=== PATIENT | male | born 1955 ===

== ENCOUNTER 2023-08-31 05:36 | Day surgery (SDC) | payer OTHER ==
[2023-08-24 11:23] LABS: HEMATOCRIT 35.1 % (39.0-48.0); HEMOGLOBIN 11.7 g/dL (13-16.00); MEAN CELL VOLUME 84.8 fL (80.0-100.00); MEAN CORPUSCULAR HEMOGLOBIN 28.1 pg (27.00-32.0); MEAN CORPUSCULAR HGB CONC 33.2 g/dl (32.0-36.0); PLATELET COUNT 307 K/uL (150-450); RED BLOOD COUNT 4.14 M/uL (4.00-6.00); RED CELL DISTRIBUTION WIDTH 13.5 % (11.5-14.5)
[2023-08-24 11:24] LABS: PH,URINE 5.5 (5.0-8.0); URINE APPEARANCE Clear; URINE BILIRRUBIN Small (NEGATIVE); URINE BLOOD Negative; URINE COLOR Dark Yellow; URINE GLUCOSE Negative (NEGATIVE); URINE NITRATE Negative; URINE PROTEIN 30 (NEGATIVE)
[2023-08-24 11:34] LABS: URINE BACTERIA 6.2 uL (0.0-1933); URINE EPITHELIAL CELLS 15.2 uL (0.0-38.8); URINE LEUKOCYTE Negative; URINE RBC 12.9 uL (0.0-20.8); URINE WBC 11.7 uL (0.0-23.2)
[2023-08-24 11:49] LABS: ALBUMIN 3.3 gm/dL (3.4-5.0); BILIRUBIN TOTAL 0.55 mg/dL (0.3-1.2); CALCIUM 9.6 mg/dL (8.5-10.1); CREATININE SERUM 1.43 mg/dL (0.70-1.30); GFR 49.48; GLOBULINA 4.7 G/DL (2.4-3.5); POTASSIUM 4.21 mEq/L (3.5-5.1)
[2023-08-24 11:52] LABS: INR 1.05; PARTIAL THROMBOPLASTIN TIME 34.2 SECONDS (22.0-34.0)
[~2023-08-31] VITALS: Ht 180.3 cm; Wt 99.8 kg
[~2023-08-31 05:36] MED LIST: AMLODIP PO
== END 2023-08-31 15:55 | disposition home or self-care (01) ==
LOC: CIR.AMB 05:36
PROVIDERS: ATTEND Orthopaedic Surgery
DX: M75.121 Complete rotator cuff tear or rupture of right shoulder, not specified as traumatic (principal); M24.111 Other articular cartilage disorders, right shoulder; M75.21 Bicipital tendinitis, right shoulder; Z20.822 Contact with and (suspected) exposure to COVID-19

== ENCOUNTER 2025-01-30 06:00 | Outpatient (CLI) | payer OTHER ==
[~2025-01-30] VITALS: Ht 180.3 cm; Wt 100.2 kg
[2025-01-30] MEDS ORDERED: COZAAR100 MG PO (09:59)
[2025-01-30] MEDS ORDERED: ADVIL200 MG PO (09:59)
[2025-01-30 10:01] VITALS: BP 140/89
[2025-01-31 10:11] LABS: HEMATOCRIT 41.6 % (39.0-48.0); HEMOGLOBIN 13.9 g/dL (13-16.00); MEAN CELL VOLUME 87.4 fL (80.0-100.00); MEAN CORPUSCULAR HEMOGLOBIN 29.3 pg (27.00-32.0); MEAN CORPUSCULAR HGB CONC 33.5 g/dl (32.0-36.0); PLATELET COUNT 203 K/uL (150-450); RED BLOOD COUNT 4.76 M/uL (4.00-6.00); RED CELL DISTRIBUTION WIDTH 14.7 % (11.5-14.5)
[2025-01-31 10:13] LABS: PH,URINE 6.5 (5.0-8.0); URINE APPEARANCE Clear; URINE BILIRRUBIN Negative (NEGATIVE); URINE BLOOD Negative; URINE COLOR Yellow; URINE GLUCOSE Negative (NEGATIVE); URINE KETONE Negative (NEGATIVE); URINE LEUKOCYTE Negative; URINE NITRATE Negative; URINE PROTEIN Negative (NEGATIVE)
[2025-01-31 10:27] LABS: URINE RBC 12.9 uL (0.0-20.8)
[2025-01-31 10:39] LABS: ALBUMIN 3.5 gm/dL (3.4-5.0); BILIRUBIN TOTAL 0.64 mg/dL (0.3-1.2); CALCIUM 9.3 mg/dL (8.5-10.1); CREATININE SERUM 1.15 mg/dL (0.70-1.30); GFR 63.43; GLOBULINA 4.1 G/DL (2.4-3.5); POTASSIUM 4.11 mEq/L (3.5-5.1); TOTAL PROTEIN 7.6 gm/dL (6.4-8.2)
[2025-01-31 10:48] LABS: URINE BACTERIA 0 uL (0.0-1933); URINE EPITHELIAL CELLS 0.9 uL (0.0-38.8); URINE WBC 0.6 uL (0.0-23.2)
[2025-01-31 10:49] LABS: INR 0.98; PARTIAL THROMBOPLASTIN TIME 30.1 SECONDS (22.0-34.0); PROTHROMBIN TIME 10.7 SECONDS (9.0-11.5)
[2025-02-07] MEDS ORDERED: METRONIDAZOLE/SODIUM CHLORIDE 500 MG/100 ML PIGGYBACK IV ONE (08:04)
[2025-02-07] MEDS ORDERED: CEFTRIAXONE SODIUM 2,000 MG VIAL ONE (08:04)
== END 2025-01-30 06:01 | disposition home or self-care (01) ==
LOC: EKG 06:00 → ADM 10:00 → CIR.AMB 02-06 10:00 → EDSTATUS 02-06 10:00 → CIR.AMB 02-06 11:30
PROVIDERS: ATTEND Orthopaedic Surgery
DX: M75.111 Incomplete rotator cuff tear or rupture of right shoulder, not specified as traumatic (principal)

== ENCOUNTER 2025-04-10 06:35 | Day surgery (SDC) | payer OTHER ==
[2025-04-03 09:02] VITALS: BP 133/77
[2025-04-03 09:39] LABS: PH,URINE 6.5 (5.0-8.0); URINE APPEARANCE Clear; URINE BILIRRUBIN Negative (NEGATIVE); URINE BLOOD Negative; URINE COLOR Yellow; URINE GLUCOSE Negative (NEGATIVE); URINE KETONE Negative (NEGATIVE); URINE LEUKOCYTE Negative; URINE NITRATE Negative; URINE PROTEIN Trace (NEGATIVE)
[2025-04-03 09:44] LABS: URINE EPITHELIAL CELLS 1.5 uL (0.0-38.8); URINE RBC 11.3 uL (0.0-20.8)
[2025-04-03 09:53] LABS: BASO % 0.2 % (0.1-1.2); EOS # 0.14 (0.04-0.54); EOS % 2.4 % (0.7-7.0); HEMATOCRIT 36.2 % (40.1-51.0); HEMOGLOBIN 11.8 g/dL (13.7-17.5); LYMPH # 1.01 (1.18-3.74); LYMPH % 17.5 % (19.3-53.1); MEAN CORPUSCULAR HEMOGLOBIN 28.3 pg (25.6-32.2); MONO # 0.44 (0.24-0.82); MONO % 7.6 % (4.7-12.5); NEUT # 4.16 (1.56-6.13); NEUT % 72.1 % (34.0-71.1); PLATELET COUNT 190 K/uL (163-369); RED BLOOD COUNT 4.17 M/uL (4.63-6.08); RED CELL DISTRIBUTION WIDTH 14.7 % (11.6-14.4)
[2025-04-03 10:18] LABS: URINE BACTERIA 3.6 uL (0.0-1933); URINE CAST 0.29 uL (0.0-1.40); URINE WBC 1.5 uL (0.0-23.2)
[2025-04-03 10:31] LABS: ALBUMIN 3.3 gm/dL (3.4-5.0); BILIRUBIN TOTAL 0.55 mg/dL (0.3-1.2); CALCIUM 8.7 mg/dL (8.5-10.1); CREATININE SERUM 1.14 mg/dL (0.70-1.30); GFR 64.07; GLOBULINA 3.4 G/DL (2.4-3.5); POTASSIUM 4.18 mEq/L (3.5-5.1); TOTAL PROTEIN 6.7 gm/dL (6.4-8.2)
[2025-04-03 10:32] LABS: INR 1.02; PARTIAL THROMBOPLASTIN TIME 31.4 SECONDS (22.0-34.0); PROTHROMBIN TIME 11.1 SECONDS (9.0-11.5)
[~2025-04-10] VITALS: Ht 180.3 cm; Wt 99.8 kg
[~2025-04-10 06:35] MED LIST changes: +ADVIL200 MG PO; +COZAAR100 MG PO
[2025-04-10] MEDS ORDERED: CEFAZOLIN SODIUM 1,000 MG VIAL ONE (08:24)
[2025-04-10] MEDS ORDERED: KETOROLAC TROMETHAMINE 30 MG VIAL ONE (09:40)
[2025-04-10] MEDS ORDERED: LIDOCAINE HCL 1%/EPINEPHRINE 20ML VIAL IJ ONE (09:40)
[2025-04-10] MEDS ORDERED: BUPIVACAINE HCL/MPF 0.5% 30ML VIAL ONE (09:40)
[2025-04-10] MEDS ORDERED: MORPHINE SULFATE 2 MG/ML CARTRIDGE IV ONE (12:45)
== END 2025-04-10 14:10 | disposition home or self-care (01) ==
LOC: CIR.AMB 06:35
PROVIDERS: ATTEND Orthopaedic Surgery
DX: M75.111 Incomplete rotator cuff tear or rupture of right shoulder, not specified as traumatic (principal); M75.121 Complete rotator cuff tear or rupture of right shoulder, not specified as traumatic; M75.41 Impingement syndrome of right shoulder